=== PATIENT | female | born 1985 | race Caucasian/White ===

== ENCOUNTER 2020-03-06 10:06 | Outpatient (CLI) | payer MEDICAID, SELFPAY ==
--- NOTE | 2020-03-06 10:17 | US_ITS ---
WS: [id number] OBSTETRICAL ULTRASOUND COMPLETE HISTORY: Anatomic screening survey. COMPARISON: None available. Single intrauterine gestation in breech presentation. Cervix is Closed and normal length. Cervical length is 4.3 cm. Normal amount of amniotic fluid surrounds the fetus. Placenta: Anterior, no previa or abruption. Placenta grade 1 Heart: 141 BPM. Four chambers are identified. Anatomy: No hydrocephalus. There is a small choroid plexus cyst measuring 7 x 8 mm in the LEFT choroi d plexus. No spine abnormality. kidneys, stomach and urinary bladder are unremarkable. Abdomina l wall, three-vessel cord and cord insertion site are normal. 4 extremities are present. profile: Unremarkable. Gender: Female. measurements: BPD = 4.5 cm = 19w4d HC = 17.0 cm = 19w4d AC = 15.0 cm = 20w2d FL = 3.1 cm = 19w4d EFW: 321 g., AGA by ultrasound: 19w5d MIKI by ultrasound: 07/26/2020 US/US OB >= 14 weeks fetus [id number] IMPRESSION: 1. Single intrauterine gestation of 19w5d with an MIKI of 07/26/2020. 2. Incidental note is made of a small LEFT choroid plexus cyst. As an isolated finding these will likely resolve by late second trimester. No additional miky omic abnormalities are identified.
[2020-03-06 12:27] LABS: 25 Hydroxy Vitamin D 44 ng/mL (30-100); Alanine Aminotransferase 9 U/L (0-33); Albumin Level 4.1 g/dL (3.5-5.2); Alkaline Phosphatase 34 IU/L (35-105); Aspartate Amino Transferase 19 U/L (0-32); Blood Urea Nitrogen 7 mg/dL (6-20); Carbon Dioxide 25 mmol/L (22-29); Chloride 105 mmol/L (98-107); Globulin 2.7 g/dL (1.3-4.6); Glucose 73 mg/dL (65-115); Osmolality Calculated 282 mOsm/kg (285-295); Sodium 139 mmol/L (136-145); Total Bilirubin 0.3 mg/dL (0.15-1.2); Total Protein 6.8 g/dL (6.6-8.7)
[2020-03-06 12:41] LABS: HIV 1 & 2 Antibody Non-Reactive (Non-Reactiv); HIV 1 & 2 Antigen Non-Reactive (Non-Reactiv)
[2020-03-06 13:46] LABS: Hepatitis B Surface Antigen Non-Reactive (Nonreactive)
== END 2020-03-06 10:07 | disposition home or self-care (01) ==
LOC: RAD 10:11
PROVIDERS: Visit Provider Midwife
DX: Z34.92 Encounter for supervision of normal pregnancy, unspecified, second trimester (principal); Z3A.19 19 weeks gestation of pregnancy
CPT/HCPCS: 36415; 76805; 80053; 82306; 86850; 86900; 87340; 87806